=== PATIENT | male | born 1965 | race Asian ===

== ENCOUNTER 2018-07-02 14:04 | Emergency (ER) | payer MEDICAID ==
--- NOTE | 2018-07-02 15:41 | XRay Report ---
RIGHT FOOT, 2 views: History: Right foot pain. Osteopenia is evident. No acute osseous injury or joint pathology is identified. The soft tissues are unremarkable. IMPRESSION: Osteopenia. No evidence for acute injury to the right foot.
--- NOTE | 2018-07-02 15:41 | XRay Report ---
RIGHT TIBIA/FIBULA: History: Right leg pain Mild osteopenia is suspected. A spiral comminuted fracture is identified in the distal shaft of the tibia. An oblique fracture is identified in the distal shaft of the fibula. Alignment is near-anatomic. There is normal articulation at the knee and ankle. Mild soft tissue swelling is noted. IMPRESSION: Fractures of the distal tibia and fibula as described.
--- NOTE | 2018-07-02 15:56 | Emergency Department Report ---
HPI - General Chief Complaint: Extremity Injury, Lower Time Seen by Provider: 07/02/18 14:42 - HPI HPI: 52-year-old male presents to the emergency department with right lower leg pain and questionable fracture. The patient has a history of polio and therefore generally ambulates with a crutch(es). He says that he was reaching for his crutches a few days ago when he accidentally fell and landed awkwardly with his right leg. Shortly after this, for some reason, the patient was in senior care. He says at that time some x-rays were done but he never found out what the results were. However they placed him in a splint. EMS seemed to know that there was some distal right leg fractures. The patient did not take anything for his symptoms prior to presentation today. ED Past Medical Hx - Past Medical History Previous Medical History?: Yes Hx Hypertension: Yes Hx Liver Disease: Yes Hx Psychiatric Treatment: Yes (depression and chronic etoh abuse) Additional medical history: polio. high cholesterol. Patient denies any previous alcohol withdrawal symptoms. He denies seizure. He denies tremulousness upon alcohol cessation - Surgical History Past Surgical History?: Yes Additional Surgical History: right leg surgery - Social History Smoking Status: Unknown if ever smoked Substance Use Type: None - Medications Home Medications: Home Medications Medication Instructions Recorded Confirmed Last Taken Type Aspirin [Adult Low Dose Aspirin EC] 81 mg PO DAILY 07/05/15 07/05/15 Unknown History Metoprolol [Lopressor] 25 mg PO BID 07/05/15 07/05/15 Unknown History Sertraline [Zoloft] 50 mg PO QDAY 07/05/15 07/05/15 Unknown History Simvastatin [Zocor TAB] 20 mg PO QHS 07/05/15 07/05/15 Unknown History amLODIPine [Norvasc] 10 mg PO DAILY 07/05/15 07/05/15 Unknown History hydroCHLOROthiazide [Hctz] 12.5 mg PO QDAY 07/05/15 07/05/15 Unknown History HYDROcodone/APAP 5-325 [[place] 1 each PO Q6HR PRN #10 tablet 07/02/18 Unknown Rx 5/325] ED Review of Systems ROS: Stated complaint: BROKEN TIBIA/FIBULA Other details as noted in HPI Comment: All other systems reviewed and negative Constitutional: denies: chills, fever Eyes: denies: eye pain, eye discharge, vision change ENT: denies: ear pain, throat pain Respiratory: denies: cough, shortness of breath, wheezing Cardiovascular: denies: chest pain, palpitations Gastrointestinal: denies: abdominal pain, nausea, diarrhea Genitourinary: denies: urgency, dysuria Musculoskeletal: arthralgia. denies: back pain Skin: denies: rash, lesions Neurological: denies: headache, weakness, paresthesias Physical Exam - Physical Exam Vital Signs: Vital Signs 07/02/18 14:12 Blood Pressure 180/100 Physical Exam: GENERAL: The patient is well-developed well-nourished. HENT: Normocephalic. Atraumatic. Patient has moist mucous membranes. EYES: Extraocular motions are intact. Pupils equal reactive to light bilaterally. NECK: Supple. Trachea is midline. CHEST/LUNGS: Clear to auscultation. There is no respiratory distress noted. HEART/CARDIOVASCULAR: Regular. There is no tachycardia. There is no murmur. ABDOMEN: There is no abdominal distention. SKIN: Skin is warm and dry. NEURO: The patient is awake, alert, and oriented. The patient is cooperative. The patient has no focal neurologic deficits. The patient has normal speech. MUSCULOSKELETAL: There is some tenderness palpation to the mid to distal right lower leg and the right foot. Capillary refill is less than 2 seconds and pedal pulses +2 over 4 the affected right lower extremity. Decreased range of motion of the right lower leg secondary to pain. ED Course Vital Signs 07/02/18 14:12 Blood Pressure 180/100 - Consultations Consultation #1: 07/02/18 18:46 I spoke to the orthopedist front maker, Dr. Rosenberg, who agrees with the plan for a right lower extremity splint, nonweightbearing on crutches and outpatient follow -up. ED Medical Decision Making - Radiology Data Radiology results: image reviewed interpreted by me: X-ray of the right tib-fib shows a distal tibial shaft comminuted fracture and a distal oblique fibular fracture. - Medical Decision Making Patient presents with a complaint of right lower extremity pain and concern for fracture from a recent fall a few days ago. X-ray does show a comminuted distal tibial fracture and oblique fibular fracture. He is neurovascularly intact both before and after a Marcos splint has been placed. The orthopedist was notified and agrees with outpatient follow-up, splint placement and nonweightbearing status. The patient was given a small amount of pain medication and a referral for the orthopedist. All questions have been answered. - Differential Diagnosis fracture, dislocation, contusion, sprain, strain Critical Care Time: No Critical care attestation.: If time is entered above; I have spent that time in minutes in the direct care of this critically ill patient, excluding procedure time. ED Disposition Clinical Impression: Nondisplaced comminuted fracture of shaft of tibia Qualifiers: Encounter type: initial encounter Fracture type: closed Laterality: right Qualified Code(s): S82.254A - Nondisplaced comminuted fracture of shaft of right tibia, initial encounter for closed fracture Fracture of distal fibula Qualifiers: Encounter type: initial encounter Fracture type: closed Fracture morphology: unspecified fracture morphology Laterality: right Qualified Code(s): S82.831A - Other fracture of upper and lower end of right fibula, initial encounter for closed fracture Hypertension Qualifiers: Hypertension type: essential hypertension Qualified Code(s): I10 - Essential ( primary) hypertension Disposition: - TO HOME OR SELFCARE Is pt being admited?: No Condition: Stable Instructions: Leg Fracture (ED), Hypertension (ED) Additional Instructions: Please follow up with an orthopedic surgeon in the next few days. I have given you a referral for a local orthopedist, Dr. Rosenberg. Return to the emergency Department with any worsening of your symptoms or any acute distress. Please try and stay away from foods that are high in salt and caffeinated products to help with your elevated blood pressure. Keep a blood pressure log. You have been prescribed a medication that is sedating and therefore should not be taken prior to driving, working, and responsible for children and in no way should be mixed with alcohol of any quantity. Prescriptions: HYDROcodone/APAP 5-325 [[place] 5/325] 1 each PO Q6HR PRN #10 tablet PRN Reason: Pain Referrals: PRIMARY CAREMD [Primary Care Provider] - 3-5 Days EMMANUEL ROSENBERG MD [Staff Physician] - 2-3 Days Time of Disposition: 17:49
[2018-07-02 17:38] VITALS: BP 160/74
== END 2018-07-02 19:02 | disposition home or self-care (01) ==
LOC: ED 14:04
DX: S82.254A Nondisplaced comminuted fracture of shaft of right tibia, initial encounter for closed fracture (principal); S82.831A Other fracture of upper and lower end of right fibula, initial encounter for closed fracture; I10 Essential (primary) hypertension; F41.9 Anxiety disorder, unspecified; E78.00 Pure hypercholesterolemia, unspecified; W18.30XA Fall on same level, unspecified, initial encounter; Y93.89 Activity, other specified; Y92.89 Other specified places as the place of occurrence of the external cause; Y99.8 Other external cause status